=== PATIENT | female | born 1980 | race Caucasian/White ===

== ENCOUNTER 2018-01-02 03:47 | Emergency (ER) | payer SELFPAY ==
[2018-01-02 06:00] LABS: #Eosinphils 0.1 thou/uL (0.0-0.7); #Lymphocytes 1.1 thou/uL (1.20-3.40); #Monocytes 0.3 thou/uL (0.11-0.59); #Neutrophils 1.9 thou/uL (1.40-6.50); %Eosinophils 3.4 % (0.0-10.0); %Lymphocytes 30.4 % (21.0-51.0); %Monocytes 9.6 % (0.0-10.0); %Neutrophils 55.7 % (42.0-75.0); Hemoglobin 13.9 g/dL (12.0-16.0); Mean Corpuscular HGB CONC 34.3 g/dL (32.0-36.0); Mean Corpuscular Hemoglobin 31.8 pg (27.0-31.0); Mean Corpuscular Volume 92.7 fl (81.0-99.0); Mean Platelet Volume 8.1 fL (7.4-10.4); Platelet Count 155 thou/uL (130-400); RBC Distribution Width 11.8 % (11.5-14.5); Red Blood Cell (RBC) Count 4.37 mill/uL (4.20-5.40); White Blood Cell (WBC) Count 3.5 thou/uL (4.8-10.8)
[2018-01-02 06:13] LABS: BHCG - Serum Negative (NEGATIVE); Pregs Control Background? CLEAR/WHITE (CLR/WHITE); Pregs Control Bar Appear? YES (CONTROL BAR)
[2018-01-02 06:16] LABS: ALT (SGPT) 9 U/L (8-55); AST (SGOT) 12 U/L (5-34); Albumin 4.2 g/dL (3.5-5.0); Alkaline Phosphatase 56 U/L (40-150); Anion Gap 10 mmol/L (10-20); BUN (Urea Nitrogen) 11 mg/dL (7.0-18.7); Bilirubin, Total 0.8 mg/dL (0.2-1.2); Calc. Creatinine Clearance 0 mL/min (70-130); Calcium 9.2 mg/dL (7.8-10.44); Carbon Dioxide 26 mmol/L (22-29); Chloride 107 mmol/L (98-107); Estimated GFR-MDRD 72; Globulin 2.5 g/dL (2.4-3.5); Glucose 105 mg/dL (70-105); Potassium 3.6 mmol/L (3.5-5.1); Protein, Total 6.7 g/dL (6.0-8.3); Sodium 139 mmol/L (136-145)
--- NOTE | 2018-01-02 09:30 | CT ---
PRELIMINARY REPORT/[facility]/EMERGENTY AFTER-HOURS PROCEDURE CT Head Without Intravenous Contrast EXAM DATE/TIME: Exam ordered 01/02/2018 6:02 AM CLINICAL HISTORY: 37 years old, female; Signs and symptoms; Walking, difficulty and weakness, extremity; Left; Addition al info: 37 yo f presents to ed C/O l leg numbness. Pt states that she got up to go to bathroom at 02 00 and noticed that she had difficulty walking due to l leg numbness. States that sensation localized to l mid thigh down to below l knee and has not changed since this morning. States that she can stil l feel in her leg but states that it does not feel normal. Denies any pain. Pt denies back pain. Antw[place] es bowel or bladder problems. Denies h/o pinched nerve. Denies fall or trauma. TECHNIQUE: Axial computed tomography images of the head/brain without intravenous contrast. COMPARISON: No relevant prior studies available. FINDINGS: Brain: Normal. No hemorrhage. No significant white matter disease. No edema. Ventricles: Normal. No ventriculomegaly. Bones/joints: Normal. No acute fracture. Soft tissues: Normal. Sinuses: Unremarkable as visualized. No acute sinusitis. Mastoid air cells: Unremarkable as visualized. No mastoid effusion. IMPRESSION: No acute intracranial hemorrhage. Thank you for allowing us to participate in the care of your patient. Dictated and Authenticated by: Hiro Yo MD 01/02/2018 6:31 AM Central Time ([place] & [place]) FINAL REPORT CT BRAIN WITHOUT CONTRAST: Date: 01/02/18 FINDINGS/IMPRESSION: I agree with the preliminary report given by Garcia. POS: [facility]
--- NOTE | 2018-01-02 11:23 | MRI ---
MR OF THE LUMBAR SPINE WITHOUT CONTRAST: Indication: 37-year-old female with left leg weakness and numbness in the thigh. Technique: Multiplanar, multisequence MRI images were obtained of the lumbar spine without IV contras t. Comparison: No radiographic or MR comparisons are available. FINDINGS: The bone marrow signal intensity appears within normal limits. There is loss of normal disc signal an d height at L3-4 through L5-S1. The conus terminates at the expected T12-L1 level. Visualized retrope ritoneum is unremarkable. No acute fracture is demonstrated. L5-S1: There is a broad based bulge without appreciable central canal or neural foraminal narrowing. L4-5: There is a broad based bulge with facet joint degenerative change. There is a small superimpose d right foraminal disc protrusion causing moderate narrowing of the right neural foramina without def inite impingement. L3-4: There is a broad based bulge causing mild encroachment on the neural foramina without definite impingement. L2-3: There is no appreciable central canal or neural foraminal narrowing. L1-2: There is no appreciable central canal or neural foraminal narrowing. There is a mild broad base d bulge. T12-L1: There is no appreciable central canal or neural foraminal narrowing. IMPRESSION: Mild multilevel spondylosis of the lumbar spine. Moderate right neural foraminal narrowing at L4-5 due to a right foraminal disc protrusion and broad based bulge. POS: [facility]
== END 2018-01-02 09:45 | disposition home or self-care (01) ==
LOC: ERS 03:47
DX: R20.2 Paresthesia of skin (principal)
CPT/HCPCS: 36415; 70450; 72148; 80053; 84703; 85025

== ENCOUNTER 2020-06-12 10:19 | Emergency (ER) | payer OTHER, SELFPAY ==
[2020-06-12] MEDS ORDERED: Dexamethasone 4 mg/ml Vial ONE (10:36)
[2020-06-12 11:07] LABS: #Lymphocytes 0.8 thou/uL (1.20-3.40); #Monocytes 0.2 thou/uL (0.11-0.59); #Neutrophils 2.9 thou/uL (1.40-6.50); %Eosinophils 0.2 % (0.0-10.0); %Lymphocytes 19.9 % (21.0-51.0); %Monocytes 4.5 % (0.0-10.0); %Neutrophils 75.4 % (42.0-75.0); Hemoglobin 14.8 g/dL (12.0-16.0); Mean Corpuscular HGB CONC 33.8 g/dL (32.0-36.0); Mean Corpuscular Hemoglobin 31.3 pg (27.0-31.0); Mean Corpuscular Volume 92.5 fL (78.0-98.0); Platelet Count 121 thou/uL (130-400); RBC Distribution Width 11.5 % (11.5-14.5); Red Blood Cell (RBC) Count 4.75 mill/uL (4.20-5.40); White Blood Cell (WBC) Count 3.8 thou/uL (4.8-10.8)
[2020-06-12 11:17] LABS: BHCG - Serum Negative (NEGATIVE); Pregs Control Background? CLEAR/WHITE (CLR/WHITE); Pregs Control Bar Appear? YES (CONTROL BAR)
--- NOTE | 2020-06-12 11:24 | RAD ---
PORTABLE CHEST: Date: 06/12/2020 COMPARISON: 06/10/2020 study. HISTORY: COVID-positive. Difficulty breathing. FINDINGS: Heart size and mediastinum are within normal limits. There is some subtle increased density in the ri ght mid and both lower lung hernandez, which would suggest the possibility that this represents some aleksey und-glass opacities. IMPRESSION: Suggestion of some developing ground-glass opacities in both lung hernandez. POS: [facility]
[2020-06-12 11:26] LABS: ALT (SGPT) 61 U/L (8-55); AST (SGOT) 65 U/L (5-34); Albumin 3.7 g/dL (3.5-5.0); Alkaline Phosphatase 61 U/L (40-110); Anion Gap 15 mmol/L (10-20); BUN (Urea Nitrogen) 14 mg/dL (7.0-18.7); Bilirubin, Total 0.6 mg/dL (0.2-1.2); CK (CPK) 81 U/L (29-168); Calc. Creatinine Clearance 0 mL/min (70-130); Calcium 8.4 mg/dL (7.8-10.44); Carbon Dioxide 23 mmol/L (22-29); Chloride 107 mmol/L (98-107); Estimated GFR-MDRD 72; Globulin 3.2 g/dL (2.4-3.5); Glucose 100 mg/dL (70-105); Lipase 17 U/L (8-78); Potassium 3.5 mmol/L (3.5-5.1); Protein, Total 6.9 g/dL (6.0-8.3); Sodium 141 mmol/L (136-145)
[2020-06-12] MEDS ORDERED: HYDROcodone/Acetaminophen 10/325 mg Tablet ONE (12:36)
== END 2020-06-12 13:33 | disposition home or self-care (01) ==
LOC: ERS 10:19
DX: U07.1 COVID-19 (principal)
CPT/HCPCS: 71045; 80053; 82550; 83690; 83880; 84484; 84703; 85025; 85379; 93005; 96374; J1100